=== PATIENT | female | born 1960 | race African-American/Black ===

== ENCOUNTER 2022-03-27 21:23 | Inpatient (IN) | payer OTHER, MEDICAID ==
[~2022-03-27] VITALS: Ht 154.9 cm; Wt 145.1 kg
[2022-03-27] MEDS ORDERED: ONDANSETRON HCL 4MG/2ML INJ IV STA (22:26)
[2022-03-27] MEDS ORDERED: PANTOPRAZOLE SODIUM 40 MG/VIAL IV STA (22:26)
[2022-03-27] MEDS ORDERED: SODIUM CHLORIDE 0.9% 1,000 ML IV ONE (22:30)
[2022-03-27 22:52] LABS: BASOPHILS % 1.1 % (0.0-2.0); EOSINOPHILS % 1.9 % (0.0-5.0); HEMATOCRIT. 39.3 % (36.0-48.0); HEMOGLOBIN. 12.3 g/dL (12.0-16.0); LYMPHOCYTES % 16.3 % (20.0-50.0); MEAN CORPUSCULAR VOLUME 85.9 fL (81.0-99.0); MEAN PLATELET VOLUME 11.2 fl (7.4-10.4); MONOCYTES % 5.2 % (2.0-8.0); NEUTROPHILS % 75.5 % (40.0-76.0); PLATELET 150 x1000/uL (130-400); RED BLOOD CELL COUNT 4.58 mill/uL (4.2-5.4); RED CELL DISTRIBUTION WIDTH 16.8 % (11.6-14.6)
[2022-03-27 22:55] LABS: CHLORIDE 111 mEq/L (98-107)
[2022-03-27 22:59] LABS: PARTIAL THROMBOPLASTIN TIME 26.7 sec (23.4-31.0); PROTHROMBIN TIME 10.9 sec (9.6-11.0)
[2022-03-28] LABS: HEMATOCRIT 34.5 % (36.0-48.0); HEMOGLOBIN 10.7 g/dL (12.0-16.0)
[2022-03-28] MEDS ORDERED: SODIUM CHLORIDE 0.9% 1,000 ML IV ONE (00:30)
[2022-03-28] MEDS ORDERED: TRANEXAMIC ACID 1,000 MG/10 ML IV NR (00:45)
[2022-03-28] MEDS ORDERED: IOHEXOL-350 100 ML BOTTLE ONE (05:09)
[2022-03-28 08:19] LABS: HEMOGLOBIN 10.8 g/dL (12.0-16.0)
[2022-03-28] MEDS ORDERED: ACETAMINOPHEN 325MG TABLET PO PRN ×2 (09:45)
[2022-03-28] MEDS ORDERED: IPRATROPIUM/ALBUTEROL 0.5-3(2.5)MG/3ML NEB HHN PRN (09:45)
[2022-03-28] MEDS ORDERED: LORAZEPAM 0.5MG TABLET PO PRN (09:45)
[2022-03-28] MEDS ORDERED: ONDANSETRON HCL 4MG/2ML INJ IV PRN (09:45)
[2022-03-28] MEDS ORDERED: DOCUSATE SODIUM 100MG CAPSULE PO PRN (09:45)
[2022-03-28] MEDS ORDERED: NALOXONE HCL 0.4MG/ML VIAL IV PRN (10:00)
[2022-03-28 12:21] LABS: CHLORIDE 112 mEq/L (98-107)
[2022-03-28 12:34] LABS: BASOPHILS % 0.3 % (0.0-2.0); HEMATOCRIT. 33.3 % (36.0-48.0); HEMOGLOBIN. 10.8 g/dL (12.0-16.0); LYMPHOCYTES % 21.9 % (20.0-50.0); MEAN CORPUSCULAR HEMOGLOBIN 28.1 pg (28.0-32.0); MEAN CORPUSCULAR VOLUME 86.6 fL (81.0-99.0); MEAN PLATELET VOLUME 10.4 fl (7.4-10.4); MONOCYTES % 6.5 % (2.0-8.0); NEUTROPHILS % 70.3 % (40.0-76.0); PLATELET 113 x1000/uL (130-400); RED BLOOD CELL COUNT 3.84 mill/uL (4.2-5.4); RED CELL DISTRIBUTION WIDTH 16.2 % (11.6-14.6)
[2022-03-28] MEDS: HYDROCODONE/ACETAMINOPHEN 5/325MG TABLET PO PRN (14:08)
[2022-03-28 15:35] LABS: INR 1.1; PROTHROMBIN TIME 11.4 sec (9.6-11.0)
[2022-03-28 22:00] VITALS: BP_SYST 136; BP_SYST 137; BP_DIAS 79; BP_DIAS 80
[2022-03-28] MEDS ORDERED: INFLUENZA VACCINE 05/PF 0.5 ML SYRINGE IM ONE (23:30)
[2022-03-28] MEDS ORDERED: PNEUMOCOCCAL 23-VAL P-SAC VAC 0.5 ML IM ONE (23:30)
[2022-03-29] VITALS (13 sets, daily range): BP systolic 92–139; BP diastolic 46–83
[2022-03-29] MEDS ORDERED: ASCO500T19 (01:49)
[2022-03-29] MEDS ORDERED: LOSA25TA26 MT (01:49)
[2022-03-29] MEDS ORDERED: ATROV INH (01:49)
[2022-03-29] MEDS ORDERED: ZINC220T3 (01:49)
[2022-03-29] MEDS ORDERED: TOPI25CA6 MT (01:49)
[2022-03-29] MEDS ORDERED: CHOL50003 (01:49)
[2022-03-29] MEDS ORDERED: TIOT18CA3 INH (01:49)
[2022-03-29] MEDS ORDERED: POTA10TA2 MT (01:50)
[2022-03-29] MEDS: HYDROCODONE/ACETAMINOPHEN 5/325MG TABLET PO PRN ×2 (06:50→21:48)
[2022-03-29 07:05] LABS: BASOPHILS % 0.5 % (0.0-2.0); EOSINOPHILS % 3.5 % (0.0-5.0); HEMATOCRIT. 31.4 % (36.0-48.0); HEMOGLOBIN. 10.3 g/dL (12.0-16.0); INR 1.1; LYMPHOCYTES % 25.4 % (20.0-50.0); MEAN CORPUSCULAR HEMOGLOBIN 28.2 pg (28.0-32.0); MEAN CORPUSCULAR VOLUME 86.5 fL (81.0-99.0); MEAN PLATELET VOLUME 10.5 fl (7.4-10.4); MONOCYTES % 6.7 % (2.0-8.0); NEUTROPHILS % 63.9 % (40.0-76.0); PLATELET 103 x1000/uL (130-400); PROTHROMBIN TIME 11.4 sec (9.6-11.0); RED BLOOD CELL COUNT 3.63 mill/uL (4.2-5.4); RED CELL DISTRIBUTION WIDTH 15.9 % (11.6-14.6)
[2022-03-29 07:38] LABS: CHLORIDE 114 mEq/L (98-107)
[2022-03-29] MEDS ORDERED: HEPARIN 1000 UNITS/ML 10ML ONE (09:34)
[2022-03-29] MEDS: ASCORBIC ACID 500 MG TABLET PO SCH (10:08)
[2022-03-29] MEDS: TOPIRAMATE 25MG TABLET PO SCH ×3 (10:09→21:48)
[2022-03-29] MEDS: CHOLECALCIFEROL (D3) 1000 UNIT TABLET PO SCH (10:09)
[2022-03-29] MEDS: IPRATROPIUM BROMIDE (0.02%) 0.5MG/2.5ML NEB HHN PRN (20:59)
[2022-03-29] MEDS ORDERED: INFLUENZA VACCINE 05/PF 0.5 ML SYRINGE IM ONE (21:00)
[2022-03-29] MEDS: ALBUTEROL (0.083%) 2.5MG/3ML NEB HHN PRN (21:00)
[2022-03-29] MEDS ORDERED: PNEUMOCOCCAL 23-VAL P-SAC VAC 0.5 ML IM ONE (21:00)
[2022-03-30] VITALS (9 sets, daily range): BP systolic 117–148; BP diastolic 49–86
[2022-03-30] MEDS: TOPIRAMATE 25MG TABLET PO SCH ×3 (06:28→22:00)
[2022-03-30] MEDS: HYDROCODONE/ACETAMINOPHEN 5/325MG TABLET PO PRN ×2 (06:29→13:13)
[2022-03-30 06:51] LABS: BASOPHILS % 0.2 % (0.0-2.0); EOSINOPHILS % 2.8 % (0.0-5.0); HEMATOCRIT. 30.4 % (36.0-48.0); HEMOGLOBIN. 9.9 g/dL (12.0-16.0); LYMPHOCYTES % 17.7 % (20.0-50.0); MEAN CORPUSCULAR HEMOGLOBIN 28.5 pg (28.0-32.0); MEAN CORPUSCULAR VOLUME 87.9 fL (81.0-99.0); MEAN PLATELET VOLUME 10.8 fl (7.4-10.4); MONOCYTES % 7.7 % (2.0-8.0); NEUTROPHILS % 71.6 % (40.0-76.0); PLATELET 112 x1000/uL (130-400); RED BLOOD CELL COUNT 3.46 mill/uL (4.2-5.4); RED CELL DISTRIBUTION WIDTH 16.4 % (11.6-14.6)
[2022-03-30 06:53] LABS: CHLORIDE 110 mEq/L (98-107)
[2022-03-30] MEDS: ASCORBIC ACID 500 MG TABLET PO SCH (08:22)
[2022-03-30] MEDS: CHOLECALCIFEROL (D3) 1000 UNIT TABLET PO SCH (08:22)
[2022-03-30 16:59] LABS: BASOPHILS % 0.3 % (0.0-2.0); EOSINOPHILS % 2.6 % (0.0-5.0); HEMATOCRIT. 29.5 % (36.0-48.0); HEMOGLOBIN. 9.4 g/dL (12.0-16.0); LYMPHOCYTES % 16.6 % (20.0-50.0); MEAN CORPUSCULAR HEMOGLOBIN 28.5 pg (28.0-32.0); MEAN CORPUSCULAR VOLUME 89.9 fL (81.0-99.0); MEAN PLATELET VOLUME 10.3 fl (7.4-10.4); MONOCYTES % 6.6 % (2.0-8.0); NEUTROPHILS % 73.9 % (40.0-76.0); PLATELET 111 x1000/uL (130-400); RED BLOOD CELL COUNT 3.28 mill/uL (4.2-5.4); RED CELL DISTRIBUTION WIDTH 16.1 % (11.6-14.6)
[2022-03-30] MEDS: ALBUTEROL (0.083%) 2.5MG/3ML NEB HHN PRN (20:46)
[2022-03-30] MEDS: IPRATROPIUM BROMIDE (0.02%) 0.5MG/2.5ML NEB HHN PRN (20:46)
[2022-03-30 22:50] LABS: CLARITY URINE CLEAR (CLEAR); COLOR URINE YELLOW (YELLOW); KETONES URINE NEGATIVE (NEGATIVE); LEUKOCYTE ESTERASE URINE NEGATIVE (NEGATIVE); NITRITE URINE NEGATIVE (NEGATIVE); OCCULT BLOOD URINE 1+ (NEGATIVE); PH URINE 6.5 (4.5-8.0); PROTEIN URINE NEGATIVE (NEGATIVE); SPECIFIC GRAVITY URINE 1.007 (1.005-1.030)
[2022-03-31] VITALS: BP 108/52
[2022-03-31] MEDS: HYDROCODONE/ACETAMINOPHEN 5/325MG TABLET PO PRN ×3 (01:58→17:23)
[2022-03-31 04:00] VITALS: BP 124/63
[2022-03-31 05:58] LABS: BASOPHILS % 0.3 % (0.0-2.0); HEMATOCRIT. 27.1 % (36.0-48.0); HEMOGLOBIN. 8.9 g/dL (12.0-16.0); LYMPHOCYTES % 19.7 % (20.0-50.0); MEAN CORPUSCULAR HEMOGLOBIN 28.3 pg (28.0-32.0); MEAN CORPUSCULAR VOLUME 86.3 fL (81.0-99.0); MEAN PLATELET VOLUME 10.6 fl (7.4-10.4); MONOCYTES % 7.6 % (2.0-8.0); NEUTROPHILS % 69.4 % (40.0-76.0); PLATELET 115 x1000/uL (130-400); RED BLOOD CELL COUNT 3.14 mill/uL (4.2-5.4)
[2022-03-31] MEDS: TOPIRAMATE 25MG TABLET PO SCH ×3 (06:00→22:00)
[2022-03-31 06:18] LABS: CHLORIDE 111 mEq/L (98-107)
[2022-03-31 08:00] VITALS: BP 110/70
[2022-03-31] MEDS: CHOLECALCIFEROL (D3) 1000 UNIT TABLET PO SCH (08:31)
[2022-03-31] MEDS: ASCORBIC ACID 500 MG TABLET PO SCH (08:31)
[2022-03-31 12:00] VITALS: BP 105/69
[2022-03-31 16:00] VITALS: BP 122/72
[2022-03-31 17:51] LABS: HEMATOCRIT 27.6 % (36.0-48.0)
[2022-03-31 20:00] VITALS: BP 130/75
[2022-04-01] VITALS: BP 133/84
[2022-04-01] MEDS: HYDROCODONE/ACETAMINOPHEN 5/325MG TABLET PO PRN ×2 (02:14→06:17)
[2022-04-01 04:00] VITALS: BP 148/79
[2022-04-01 05:25] LABS: BASOPHILS % 0.4 % (0.0-2.0); EOSINOPHILS % 3.9 % (0.0-5.0); HEMOGLOBIN. 8.8 g/dL (12.0-16.0); LYMPHOCYTES % 22.9 % (20.0-50.0); MEAN CORPUSCULAR HEMOGLOBIN 28.1 pg (28.0-32.0); MEAN CORPUSCULAR VOLUME 86.5 fL (81.0-99.0); MEAN PLATELET VOLUME 10.3 fl (7.4-10.4); MONOCYTES % 6.5 % (2.0-8.0); NEUTROPHILS % 66.3 % (40.0-76.0); PLATELET 128 x1000/uL (130-400); RED BLOOD CELL COUNT 3.12 mill/uL (4.2-5.4); RED CELL DISTRIBUTION WIDTH 16.1 % (11.6-14.6)
[2022-04-01 05:38] LABS: CHLORIDE 110 mEq/L (98-107)
[2022-04-01] MEDS: TOPIRAMATE 25MG TABLET PO SCH (06:00)
[2022-04-01 08:00] VITALS: BP 145/86
[2022-04-01] MEDS: ASCORBIC ACID 500 MG TABLET PO SCH (08:39)
[2022-04-01] MEDS: CHOLECALCIFEROL (D3) 1000 UNIT TABLET PO SCH (08:39)
[2022-04-01 09:46] VITALS: BP 145/86
== END 2022-04-01 14:44 | disposition home or self-care (01) | DRG 377 ==
LOC: ER 21:37 → MICUSO 03-28 00:21 → EDBEDREQSVC 03-28 17:13 → 5EST 03-28 22:37
PROVIDERS: ADMIT Internal Medicine; ATTEND Internal Medicine
PROC: 30233N1 Transfusion of Nonautologous Red Blood Cells into Peripheral Vein, Percutaneous Approach (ICD-10-PCS; principal; 2022-03-28)
DX: K57.91 Diverticulosis of intestine, part unspecified, without perforation or abscess with bleeding (principal); R57.8 Other shock; E87.20 Acidosis, unspecified; I10 Essential (primary) hypertension; E78.5 Hyperlipidemia, unspecified; J45.909 Unspecified asthma, uncomplicated; D50.0 Iron deficiency anemia secondary to blood loss (chronic); D72.829 Elevated white blood cell count, unspecified; Z20.822 Contact with and (suspected) exposure to COVID-19; Z86.73 Personal history of transient ischemic attack (TIA), and cerebral infarction without residual deficits; Z88.0 Allergy status to penicillin
CPT/HCPCS: 36415; 74018; 74174; 78278; 80048; 80053; 81003; 83605; 85014; 85018; 85025; 86850; 86900; 86920; 87426; 90686; 90732; 93005; 94640; 99285; A6261; A9560; C1893; C9113; J1644; J2405; J7030; P9016; Q9967